=== PATIENT | female | born 1985 | race Caucasian/White ===

== ENCOUNTER → 2024-06-10 08:44 | Outpatient (CLI) | payer OTHER, SELFPAY | PROVIDERS: Visit Provider Obstetrics & Gynecology | DX: Z34.01 Encounter for supervision of normal first pregnancy, first trimester (principal) | CPT/HCPCS: 87491; 87563; 87591 ==

== ENCOUNTER → 2024-06-10 09:04 | Outpatient (CLI) | payer OTHER, SELFPAY ==
[2024-06-10 10:13] LABS: Add Manual Diff / Slide Review NO; Basophils Absolute Auto 0 /uL (0-100); Basophils Percent Auto 0.5 % (0-2); Eosinophils Absolute Auto 100 /uL (0-450); Eosinophils Percent Auto 1.4 % (2-4); Hematocrit 39.6 % (36-46); Hemoglobin 13.7 g/dL (12.0-16.0); Lymphocytes Absolute Auto 1800 /uL (1100-4500); Mean Corpuscular HGB Conc 34.6 % (30-36); Mean Corpuscular Hemoglobin 30.2 PG (26-34); Mean Corpuscular Volume 87.4 fL (80-100); Monocytes Absolute Auto 700 /uL (0-900); Monocytes Percent Auto 8.6 % (3-14); Neutrophils Absolute Auto 5300 /uL (1500-7000); Neutrophils Percent Auto 66.5 % (50-75); Platelet Count 245 X10^3/uL (150-400); Red Blood Cell Count 4.53 X10^6/uL (4.0-5.2); Red Cell Distribution Width 12.6 % (11.6-14.8)
[2024-06-10 10:59] LABS: Free T4, Direct Thyroxine 0.84 ng/dL (0.78-2.19)
[2024-06-10 11:13] LABS: Thyroid Stimulating Hormone 0.519 uIU/mL (0.47-4.68)
[2024-06-10 16:22] LABS: Hepatitis B Surface Antigen NEGATIVE s/c (NEGATIVE); Rubella Antibody IgG 37.1 IU/mL (>15)
[2024-06-10 16:39] LABS: HIV 1 & 2 Ab/Ag 4th Gen Combo NEGATIVE (NEGATIVE); Hep C Virus Ab w/Reflex Quant NEGATIVE s/c (NEGATIVE)
[2024-06-11 06:08] LABS: RPR Screen Non Reactive (Non Reactive)
[2024-06-11 09:10] LABS: Varicella IgG Antibody 566 index (Immune >165)
== END ==
PROVIDERS: Referring Provider Obstetrics & Gynecology; Visit Provider Obstetrics & Gynecology
DX: Z34.01 Encounter for supervision of normal first pregnancy, first trimester (principal)
CPT/HCPCS: 36415; 80055; 84439; 84443; 86787; 86803; 86850; 86900; 86901; 87389; 87491; 87563; 87591

== ENCOUNTER 2024-10-22 22:02 | Outpatient (CLI) | payer OTHER, SELFPAY | END 2024-10-22 22:50 | disposition home or self-care (01) | LOC: OB 10-26 08:16 | PROVIDERS: Referring Provider Obstetrics & Gynecology; Visit Provider Obstetrics & Gynecology | DX: O46.93 Antepartum hemorrhage, unspecified, third trimester (principal); Z3A.29 29 weeks gestation of pregnancy | CPT/HCPCS: 59025; G0378; G0379 ==

== ENCOUNTER 2024-10-23 14:41 | Outpatient (CLI) | payer OTHER, SELFPAY ==
--- NOTE | 2024-10-23 15:18 | DI.US.S_ITS ---
PROCEDURE: US OB BIOPHYSICAL PROFILE INDICATIONS: Bleeding, leaking fluid OUTSIDE/PRIOR DATING DATA: Last menstrual period (LMP): 03/30/2024. LMP-based estimated date of delivery (NANCY): 01/04/2025. The calculations are made using the clinical NANCY of 01/04/2025. TECHNIQUE: Real-time scanning was performed of the fetus, with image documentation and biometric measurements. Biophysical profile was also obtained. Endovaginal scanning: Not performed COMPARISON: None. FINDINGS: General: A single living intrauterine gestation is present. Presentation: Vertex. Placenta: Placental position is posterior fundal, without previa. Amniotic fluid index: 19.4 cm, normal range is 5-24 cm. Single deepest vertical pocket is 6.1 cm. heart rate: 133 beats per minute. Maternal cervical canal: 2.7 cm long. Normal lower limit is 2.5 cm. Closed. Clinically estimated gestational age: 29 weeks 4 days Biophysical profile: Tone: 2 points. Movement: 2 points. Respiration: 2 points. Largest pocket of fluid: 2 points. IMPRESSION: 1. Sanchez living intrauterine at 29 weeks 4 days based on prior ultrasound. 2. Normal placenta and amniotic fluid. 3. Normal biophysical profile. Score 8/8. We strive to produce accurate, complete, and clear reports of imaging services. To assist us in improving patient care, this report was composed using standard report templates and voice recognition software. Therefore, it may contain abnormal punctuation, insertions and/or omissions. Occasional wrong-word or sound-alike substitutions may occur. Though we review the report and make efforts to correct it, we do recommend that the report be read carefully in proper context to recognize any text inaccuracies. Dictated by: Iam Umanzor M.D. on 10/23/2024 at 16:24 Approved by: Iam Umanzor M.D. on 10/23/2024 at 16:27
--- NOTE | 2024-10-23 16:42 | PM.OBTRLD ---
Visit Information Visit Information Comments/Additional reasons for admission: 39yo at 29w4d who presented with concerns for ROM. [place] gush of fluid. It was enough to wet through her pants. She denies any leaking since then. She denies any contractions. She is feeling her baby moving regularly. She did come to L&D last night due to vaginal bleeding, with a reassuring evaluation at that time. [facility] Medical History (Updated 10/24/24 @ 12:32 by Lisbeth Kelsey MD) Ruptured tympanic membrane (~1987) Human papilloma virus (~2005) HSV (herpes simplex virus) anogenital infection Chlamydia (~2003) Wrist fracture (~2000) Surgical History (Updated 07/16/24 @ 19:23 by Zaynab Reyes) Anesthesia [place] teeth extracted History of ear surgery (~2015) History of hand surgery (~2006) History of loop electrosurgical excision procedure (LEEP) (~2004) Family History (Updated 07/16/24 @ 19:27 by Zaynab Reyes) Mother Heart attack Esophageal stricture Stroke Dental disease Heart disease Hypertension Father Throat cancer Chewing tobacco dependence in remission Prostate cancer Melanoma Grandmother Melanoma Cancer Grandfather Cancer of retina Grandmother No problems noted. 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) current occupational exposures/hazards: No (organic, no chemical pesticides/herbicides) special [place] needs: No travel history: over 6 months ago seatbelt use: sometimes helmet use: Yes water heater temp set < 120 deg: Yes working smoke detector in home: Yes fire extinguisher in home: Yes carbon monox detector in home: Yes firearms in home: Yes firearms unloaded and locked: Yes do you feel safe at home: Yes Smoking Status: Former smoker (quit 2014; occasional use ~10 years) second hand exposure: No alcohol intake: former substance use type: marijuana (in her 20s, not recently) during the past year weight has: increased > 10 lbs well-balanced diet: daily or most days daily servings fruits/ve-4 caffeine: Yes (AM espresso) Type(s) of exercise: bicycling (stationary bike), regular exercise (adult sports leagues) and other (physical work, hiking 2-4 miles/day) frequency: daily Evaluation Evaluation Baseline heart rate: 125 Variability: Moderate (11-25) monitor accelerations: Present Monitor Decelerations: Absent Category of Tracing: Reactive Non-invasive Membranes Rupture Test: negative Diagnosis, Plan/Disposition Final Diagnosis (1) No leakage of amniotic fluid into vagina: Status: Acute (2) 29 weeks gestation of : Status: Acute Plan/Disposition Plan: 39yo at 29w4d who presented with concerns for ROM. Negative amniosure. Pt with minimal spotting on exam today for amniosure. U/S with cervical length of 2.7, placenta appearing normal. NST reassuring. Pt stable for discharge home. Encouraged pelvic rest for now. OB Disposition: home
[2024-10-23 17:36] LABS: Appearance Urine UA CLEAR; Bilirubin Urine UA NEGATIVE (NEGATIVE); Color Urine UA YELLOW; Glucose Urine UA NEGATIVE (Negative); Ketones Urine UA TRACE (NEGATIVE); Leukocyte Esterase Urine UA NEGATIVE (NEGATIVE); Nitrite Urine UA NEGATIVE (Negative); Occult Blood Urine UA NEGATIVE (Negative); Protein Urine UA NEGATIVE (Negative); Urobilinogen Urine UA 0.2 E.U./dL (0.2)
[2024-10-23 17:39] LABS: pH Urine UA 6.5 (4.5-8.0)
[2024-10-23 17:43] LABS: Bacteria Urine Few (2-10); RBC Urine None Seen (0-5/HPF); Squamous Epithelial Cell Urine 0-1 /HPF (0-5/HPF); Urine Volume 10mL (spun); WBC Urine 0-1/HPF (0-5/HPF)
[2024-10-23 17:44] LABS: Amorphous Sediment Urine 2+; Culture Indicated Urine Cult Not Indicated
== END 2024-10-23 16:40 | disposition home or self-care (01) ==
LOC: LABOR 14:55 → OB 10-26 08:17
PROVIDERS: PCP Family Medicine; Referring Provider Family Medicine; Visit Provider Family Medicine
DX: Z03.71 Encounter for suspected problem with amniotic cavity and membrane ruled out (principal); Z3A.29 29 weeks gestation of pregnancy
CPT/HCPCS: 59025; 76819; 81001; 84112; G0378; G0379